=== PATIENT | female | born 1990 | race Caucasian/White ===

== ENCOUNTER 2017-05-02 09:03 | Outpatient (RCR) | payer OTHER | END 2017-05-03 | LOC: M PT 09:03 | PROVIDERS: ATTEND Physician Assistant | DX: Z51.89 Encounter for other specified aftercare (principal); M25.571 Pain in right ankle and joints of right foot ==

== ENCOUNTER 2017-05-13 11:49 | Outpatient (RCR) | payer OTHER | END 2017-06-03 | LOC: M PT 11:49 | PROVIDERS: ATTEND Physician Assistant | DX: Z51.89 Encounter for other specified aftercare (principal); M25.571 Pain in right ankle and joints of right foot ==

== ENCOUNTER 2017-08-06 19:25 | Inpatient (IN) | payer OTHER ==
[2017-08-06] MEDS ORDERED: OXYTOCIN 30 UNITS IN 0.9% NaCl 500ML IV BAG (J2590) As Ordered (20:21)
[2017-08-06] MEDS: LR 1,000 ML IV (21:04)
[2017-08-06] MEDS: LACTATED RINGER'S 1000 ML IV (21:04)
[2017-08-06] MEDS: OXYTOCIN DRIP 30 UNITS in APPROPRIATE DILUENT 1 EA IV (21:05)
[2017-08-06] MEDS ORDERED: DIBUCAINE 1% OINTMENT 30GM TOP (21:15)
[2017-08-06] MEDS ORDERED: MEASLES,MUMPS,RUBELLA VACCINE INJ (MMR-II) (90707) SC (21:15)
[2017-08-06] MEDS: LIDOCAINE 1% MDV INJ 50 ML VIAL INFIL (21:15)
[2017-08-06] MEDS: miSOPROStol 200 MCG TAB (S0191) PR (21:15)
[2017-08-06 21:22] LABS: HEMATOCRIT 33.7 % (36.0-47.0); MEAN CORPUSCULAR HEMOGLOBIN 26.1 pg (27.0-33.0); MEAN CORPUSCULAR HGB CONC 32.6 g/dl (32.0-36.5); MEAN CORPUSCULAR VOLUME 79.9 fl (80.0-96.0); PLATELET COUNT, AUTOMATED 364 10^3/uL (150-450); RED BLOOD COUNT 4.22 10^6/uL (4.00-5.40); RED CELL DISTRIBUTION WIDTH 16.7 % (11.5-14.5); WHITE BLOOD COUNT 15.9 10^3/uL (4.0-10.0)
[2017-08-06 21:41] LABS: ALBUMIN 2.8 GM/DL (3.2-5.2); ALBUMIN/GLOBULIN RATIO 0.65 (1.00-1.93); ALKALINE PHOSPHATASE 198 U/L (45-117); ALT/SGPT 17 U/L (12-78); ANION GAP 14 MEQ/L (8-16); AST/SGOT 24 U/L (7-37); BILIRUBIN,TOTAL 0.1 MG/DL (0.2-1.0); BLOOD UREA NITROGEN 9 MG/DL (7-18); CALCIUM LEVEL 9.4 MG/DL (8.5-10.1); CARBON DIOXIDE LEVEL 17 MEQ/L (21-32); CHLORIDE LEVEL 108 MEQ/L (98-107); CREATININE FOR GFR 0.82 MG/DL (0.55-1.02); GLOMERULAR FILTRATION RATE > 60.0 (>60); GLUCOSE, FASTING 110 MG/DL (70-105); POTASSIUM SERUM 3.8 MEQ/L (3.5-5.1); SODIUM LEVEL 139 MEQ/L (136-145); TOTAL PROTEIN 7.1 GM/DL (6.4-8.2)
[2017-08-06] MEDS: IBUPROFEN 800 MG TAB PO (22:23)
[2017-08-07 01:25] LABS: AMPHETAMINES URINE REFLEX NEGATIVE (NEGATIVE); BARBITURATES URINE REFLEX NEGATIVE (NEGATIVE); BENZODIAZEPINES URINE REFLEX NEGATIVE (NEGATIVE); CANNABINOIDS URINE REFLEX NEGATIVE (NEGATIVE); COCAINE METABOLITE URINE REFLE NEGATIVE (NEGATIVE); METHADONE URINE REFLEX NEGATIVE (NEGATIVE); OPIATES URINE REFLEX NEGATIVE (NEGATIVE); PHENCYCLIDINE URINE REFLEX NEGATIVE (NEGATIVE)
[2017-08-07] MEDS: PRENATAL VITAMINS CHEWABLE TABLET PO (07:45)
[2017-08-07] MEDS: ACETAMINOPHEN 500 MG TAB PO (11:06)
[2017-08-07 11:19] LABS: ANTIBODY IDENTIFICATION 1 1
[2017-08-07] MEDS: RHOGAM 300 MCG (1500 IU) INJ (J2790) IM (11:37)
[2017-08-07] MEDS: IBUPROFEN 800 MG TAB PO (15:58)
[2017-08-07] MEDS: DOCUSATE SODIUM 100 MG CAP PO (18:26)
[2017-08-08] MEDS: IBUPROFEN 800 MG TAB PO ×2 (04:51→17:04)
[2017-08-08 07:13] LABS: HEMATOCRIT 29.3 % (36.0-47.0); HEMOGLOBIN 9.2 g/dl (12.0-16.0); MEAN CORPUSCULAR HEMOGLOBIN 25.8 pg (27.0-33.0); MEAN CORPUSCULAR HGB CONC 31.4 g/dl (32.0-36.5); MEAN CORPUSCULAR VOLUME 82.1 fl (80.0-96.0); PLATELET COUNT, AUTOMATED 210 10^3/uL (150-450); RED BLOOD COUNT 3.57 10^6/uL (4.00-5.40); RED CELL DISTRIBUTION WIDTH 17.5 % (11.5-14.5); WHITE BLOOD COUNT 12.5 10^3/uL (4.0-10.0)
[2017-08-08 07:42] LABS: ALBUMIN 2.4 GM/DL (3.2-5.2); ALBUMIN/GLOBULIN RATIO 0.69 (1.00-1.93); ALKALINE PHOSPHATASE 147 U/L (45-117); ALT/SGPT 14 U/L (12-78); ANION GAP 10 MEQ/L (8-16); AST/SGOT 21 U/L (7-37); BILIRUBIN,TOTAL 0.1 MG/DL (0.2-1.0); BLOOD UREA NITROGEN 9 MG/DL (7-18); CALCIUM LEVEL 8.2 MG/DL (8.5-10.1); CARBON DIOXIDE LEVEL 23 MEQ/L (21-32); CHLORIDE LEVEL 108 MEQ/L (98-107); CREATININE FOR GFR 0.69 MG/DL (0.55-1.02); GLOMERULAR FILTRATION RATE > 60.0 (>60); GLUCOSE, FASTING 113 MG/DL (70-105); POTASSIUM SERUM 3.7 MEQ/L (3.5-5.1); SODIUM LEVEL 141 MEQ/L (136-145); TOTAL PROTEIN 5.9 GM/DL (6.4-8.2)
== END 2017-08-08 19:00 | disposition home or self-care (01) | DRG 775 ==
LOC: M LDO 19:25 → M LDI 20:16 → M OBS 22:50
PROC: 10E0XZZ Delivery of Products of Conception, External Approach (ICD-10-PCS; principal; 2017-08-06)
PROC: 0KQM0ZZ Repair Perineum Muscle, Open Approach (ICD-10-PCS; 2017-08-06)
DX: O62.3 Precipitate labor (principal); Z3A.37 37 weeks gestation of pregnancy; O70.1 Second degree perineal laceration during delivery; Z37.0 Single live birth